=== PATIENT | female | born 1995 | race Hispanic/Latino ===

== ENCOUNTER 2018-08-18 18:33 | Emergency (ER) | payer MEDICAID, OTHER ==
[2018-08-18] MEDS ORDERED: ACETAMINOPHEN 325 MG TAB ONE (19:50)
[2018-08-18 20:01] LABS: BASOPHILS % (AUTO) 0.3 % (0.0-5.0); EOSINOPHILS % (AUTO) 0.1 % (0.0-8.0); HEMATOCRIT 38.3 % (36-48); MEAN CORPUSCULAR HEMOGLOBIN 27.6 pg (27.0-33.0); MEAN CORPUSCULAR VOLUME 83.5 fL (79-99); MONOCYTES % (AUTO) 5.1 % (3.0-13.0); NEUTROPHILS % (AUTO) 77.5 % (40.0-77.0); PLATELET COUNT (AUTO) 297 K/uL (130-400); RED BLOOD CELL COUNT(AUTO) 4.58 MIL/uL (4.00-5.50); RED CELL DISTRIBUTION WIDTH 14.4 % (11.0-15.5); WHITE BLOOD COUNT (AUTO) 9.4 K/uL (4.8-10.8)
[2018-08-18 20:05] LABS: CREATININE 0.7 mg/dL (0.5-1.5); POTASSIUM 3.6 mmol/L (3.5-5.1)
[2018-08-18 20:07] LABS: BILIRUBIN,URINE Negative (NEGATIVE); COLOR,URINE Yellow (YELLOW); GLUCOSE, URINE (UA) Negative (NEGATIVE); KETONES,URINE Negative (NEGATIVE); LEUKOCYTE ESTERASE ,URINE Negative (NEGATIVE); NITRATE,URINE Negative (NEGATIVE); OCCULT BLOOD,URINE Negative (NEGATIVE); PROTEIN,URINE Negative (NEGATIVE); UROBILINOGEN,URINE 0.2 mg/dL (0.2-1.0)
[2018-08-18 20:10] LABS: HCG,QUAL RESULT NEGATIVE (NEGATIVE)
[2018-08-18 20:11] LABS: ALBUMIN 3.8 g/dL (3.5-5.0); APPEARANCE,URINE CLEAR (CLEAR); BILIRUBIN,TOTAL 0.3 mg/dL (0.2-1.0); TOTAL PROTEIN, SERUM 8.2 g/dL (6.0-8.3)
== END 2018-08-18 22:59 | disposition home or self-care (01) ==
LOC: EDH 18:33
DX: R10.84 Generalized abdominal pain (principal); Z98.890 Other specified postprocedural states; Z72.0 Tobacco use
CPT/HCPCS: 36415; 76705; 80053; 81003; 81025; 83690; 85025

== ENCOUNTER 2019-09-01 18:24 | Emergency (ER) | payer OTHER | END 2019-09-01 19:12 | disposition home or self-care (01) | LOC: EDH 18:24 | DX: J30.89 Other allergic rhinitis (principal); J00 Acute nasopharyngitis [common cold]; Z98.890 Other specified postprocedural states; Z72.0 Tobacco use ==

== ENCOUNTER 2019-09-03 15:22 | Emergency (ER) | payer SELFPAY ==
[2019-09-03 16:13] LABS: RAPID GROUP A STREP NEGATIVE (NEGATIVE)
== END 2019-09-03 16:47 | disposition home or self-care (01) ==
LOC: EDH 15:22
DX: J10.1 Influenza due to other identified influenza virus with other respiratory manifestations (principal); Z72.0 Tobacco use
CPT/HCPCS: 87804; 87880

== ENCOUNTER 2022-12-14 17:26 | Emergency (ER) | payer OTHER ==
[~2022-12-14] VITALS: Ht 154.9 cm; Wt 67.1 kg
[2022-12-14 19:57] LABS: BASOPHILS % (AUTO) 0.4 % (0.0-5.0); EOSINOPHILS % (AUTO) 0.3 % (0.0-8.0); HEMATOCRIT 39.6 % (36-48); LYMPHOCYTES % (AUTO) 16.1 % (21.0-51.0); MEAN CORPUSCULAR HEMOGLOBIN 28.8 pg (27.0-33.0); MEAN CORPUSCULAR HGB CONC 32.8 g/dL (32.0-36.0); MEAN CORPUSCULAR VOLUME 87.6 fL (79-99); MONOCYTES % (AUTO) 10.2 % (3.0-13.0); NEUTROPHILS % (AUTO) 72.5 % (40.0-77.0); PLATELET COUNT (AUTO) 437 K/uL (130-400); RED BLOOD CELL COUNT(AUTO) 4.52 MIL/uL (4.00-5.50); WHITE BLOOD COUNT (AUTO) 11.6 K/uL (4.8-10.8)
[2022-12-14 20:09] LABS: CREATININE 0.7 mg/dL (0.5-1.5); POTASSIUM 3.4 mmol/L (3.5-5.1)
[2022-12-14 20:14] LABS: ALBUMIN 3.3 g/dL (3.5-5.0); TOTAL PROTEIN, SERUM 8.4 g/dL (6.0-8.3)
[2022-12-14] MEDS ORDERED: UNASYN 3GM VIAL IV STA (21:39)
[2022-12-14] MEDS ORDERED: AMP/SULBAC 3GM+NS 100ML 100 ML IV ONE (22:00)
[2022-12-14] MEDS ORDERED: DEXAMETHASONE SOD PHOSPHATE 4 MG/ML 1ML VIAL IV ONE (22:00)
[2022-12-15 06:30] VITALS: BP 112/76
== END 2022-12-15 11:22 ==
LOC: EDH 17:26
DX: J36 Peritonsillar abscess (principal); Z98.890 Other specified postprocedural states; Z20.822 Contact with and (suspected) exposure to COVID-19
CPT/HCPCS: 99291; 96366; 42700; 96365; 70491; 96375; 87426; 80053; 85025; 87880; 87804 ×2; 83605; 81025; 36415; J1100; J0295; 10160

== ENCOUNTER 2023-07-02 19:48 | Emergency (ER) | payer OTHER ==
[~2023-07-02] VITALS: Ht 154.9 cm; Wt 72.6 kg
[2023-07-02 20:29] LABS: RAPID GROUP A STREP positive (NEGATIVE)
[2023-07-02 20:33] LABS: INFLUENZA TYPE A Negative For Type A (NEGATIVE); INFLUENZA TYPE B Negative For Type B (NEGATIVE)
[2023-07-02 20:34] LABS: SARS-CoV-2, RNA, NAAT POSITIVE SARS CoV-2 (NEGATIVE)
[2023-07-02] MEDS ORDERED: AMOX500C2 PO (22:47)
[2023-07-02] MEDS ORDERED: CEFTRIAXONE 1G VIAL IM ONE (23:00)
[2023-07-02 23:20] VITALS: BP 128/74; PULSE 78; RESP 18; O2SAT 98
== END 2023-07-02 23:24 | disposition home or self-care (01) ==
LOC: EDH 19:48
DX: U07.1 COVID-19 (principal); Z98.890 Other specified postprocedural states
CPT/HCPCS: 99283; 87635; 87880; 87804 ×2; 96372; J0696